=== PATIENT | male | born 1955 | race Caucasian/White ===

== ENCOUNTER 2025-04-25 22:48 | Inpatient (IN) | payer MEDICARE, SELFPAY ==
[2025-04-25] VITALS (7 sets, daily range): BP systolic 99–120; BP diastolic 55–80; BMI 27.5
--- NOTE | 2025-04-25 20:14 | ED.GENMED ---
History of Present Illness
General
Chief Complaint: Chest Pain
Source: patient
Exam Limitations: none
Time Seen by Provider: 04/25/25 20:11
Nursing documentation reviewed up to this point in time: agreed with
History of Present Illness
History of Present Illness:
69-year-old male with history of BPH and hyperlipidemia presents to the emergency room via EMS for evaluation of chest pain, found have a STEMI in the field. Patient reports that he was golfing this evening at around 6 PM when he had acute onset of
chest pain which he describes as substernal pressure. Symptoms were consistent to the point that he had to stop golfing and drove home. He told his that he was having significant chest pain and EMS was called to bring her to the hospital. On
EMS arrival he was mildly hypertensive. Their initial EKG was concerning for inferior STEMI. He was given 324 mg of aspirin and 2 total doses of nitroglycerin and he reports chest pain has improved but not resolved�rates it currently at a 11/26.
He denies having had similar chest pains in the past although he has had occasional palpitations. He denies having seen a forest fire fighter previously but was supposed to see Dr. Henderson through [facility] to have evaluation of his palpitations.
Review of Systems
Review of Systems
All Other Systems: ROS reviewed and negative except as documented in HPI and ROS
Respiratory: Denies trouble breathing
Cardiac: Reports chest pain
ABD/GI: Denies abdominal pain, nausea or vomiting
: Denies flank pain
Musculoskeletal: Denies edema
Neurological: Denies dizzy or headache
Phy Exam
Physical Exam
Physical Exam:
General: Awake, alert, oriented x3; no acute distress
Head: Normocephalic, atraumatic
Eyes: Conjunctiva normal, sclera anicteric
Throat: Airway intact, handling secretions
Neck: Trachea midline, supple without meningismus
Lungs: Clear to auscultation bilaterally, no wheezing, rales, rhonchi
Heart: Regular rate and rhythm, no murmurs, gallops, or rubs
Abd: Soft, non distended, nontender
Neuro: No gross deficits
Skin: no rash in area of concern
Extremities: No edema in extremities, equal pulses in all extremities
Scores
Heart Failure Risk
Heart Failure Risk Score: Not Applicable
Heart Score for Chest Pain Patients
STEMI patient?: Yes
Withdrawal Assessment of Alcohol
Withdrawal Assessment Completed?: Not applicable
Course
Orders/Labs/Results
Orders:
Orders
04/25/25 20:09
Electrocardiogram (*1) Urgent
Reason for Study: Chest Pain
Cardiac Monitoring- Treatment ONCE
EKG- Treatment ONCE
IV Insert/Care/Rem.- Treatment PRN
Complete Blood Count/With Diff Urgent
Comprehensive Metabolic Panel Urgent
Troponin I Urgent
O2 Therapy [RESP] Urgent
Titrate/Wean O2 to maintain O2 sat greater than (%): 90
Special Instructions: Maintain sats >/=90%
Pulse Ox/spot Check [RESP] Urgent
Quantity: 1
Special Instructions: ON ROOM AIR
MDM/Problems Addressed
Differential Diagnosis Includes:
STEMI
MDM/Problems Addressed:
69-year-old male presents with acute onset chest pain while golfing today�EKG concerning for STEMI. Prehospital STEMI alert was called and case was discussed with cattle sorter prehospital who is en route for evaluation. His arrival
EKG here confirms inferior STEMI. He was given aspirin prehospital in addition to nitroglycerin. Given heparin and Brilinta here. Placed on telemetry, supplemental oxygen. Continue to monitor pending Disposal Operator.
*Pulse Oximetry
Patient hypoxic: no (95%)
*EKG
Interpreted by ED Provider?: Yes
Heart Rate: 62
Rate: normal
Rhythm: sinus
[place]: normal axis
Interval: normal interval
QRS Pattern: normal QRS
Ischemia: ST elevation
*Critical Care Note
Total Time (30-74mins, 75-104mins- exclusive of procedures): Not Applicable
Data Reviewed
Source: patient and ambulance crew
Patient Management
Discussion with other providers: Utility Person (Discussed with cattle sorter)
Escalation/DeEscalation of care consider admission/obs:
To Disposal Operator
ED Attending Note
-
Portions of this chart may have been created with voice recognition software.� Occasional wrong word or��sound alike� substitutions may have occurred due to the inherent limitations of voice recognition software.
Discharge Plan
Departure
Patient Disposition: WET POUR SUPERVISOR
Date of Disposition: 04/25/25
Time of Disposition: 20:11
Admit to doctor: Dr. German
Presentation/result/management discussed w/ accepting MD/DO: cardiology
Discharge Problem:
ST elevation (STEMI) myocardial infarction
Interventions
Interventions:
*Risk Screen - Suicide Last Done: 04/25/25 20:13
*General Assessment Last Done: 04/25/25 20:13
*Neglect/Abuse Screening Last Done: 04/25/25 20:13
*ED- Fall Risk Assessment Last Done: 04/25/25 20:13
*ED COVID-19 Vaccine History Last Done: 04/25/25 20:13
ED- Cardiac Assessment Last Done: 04/25/25 20:13
Discharge Date and Time
Print Language: KAZAKH
[2025-04-25 20:23] LABS: Hematocrit 42.5 % (39.0-52.0); Hemoglobin 15.2 g/dL (13.0-18.0); Mean Corp Hgb Conc. 35.8 g/dL (33.0-37.0); Mean Corpuscular Volume 89.1 fL (80.0-94.0); Nucleated Red Blood Cells % 0 % (-); Platelet Count 104 10^3/uL (130-400); Red Cell Dist. Width 12.2 % (11.5-14.5)
[2025-04-25 20:44] LABS: ALT (SGPT) 25 U/L (0-50); AST (SGOT) 25 U/L (17-59); Albumin 4.6 g/dl (3.5-5.0); Alkaline Phosphatase 48 U/L (38-126); Blood Urea Nitrogen 15 mg/dl (9-20); Calcium 9.7 mg/dl (8.4-10.2); Carbon Dioxide 21 mmol/L (22-30); Chloride 109 mmol/L (98-107); Estimated Creatinine Clearance 119 ml/min; Glucose 149 mg/dl (70-99); Potassium 4.3 mmol/L (3.5-5.1); Sodium 139 mmol/L (135-145); Total Protein 7.0 g/dl (6.3-8.2); eGFR > 60.00
[2025-04-25 20:52] LABS: ACT-LR - POC 173 Seconds (116-155)
[2025-04-25 20:59] LABS: Troponin I 0.404 ng/ml
[2025-04-25 21:03] LABS: ACT-LR - POC 284 Seconds (116-155)
[2025-04-25 21:19] LABS: ACT-LR - POC 319 Seconds (116-155)
[2025-04-25 21:41] LABS: ACT-LR - POC 239 Seconds (116-155)
[2025-04-25 21:57] LABS: ACT-LR - POC 281 Seconds (116-155)
[2025-04-25 22:07] LABS: ACT-LR - POC 353 Seconds (116-155)
--- NOTE | 2025-04-25 22:56 | ITS.CL.CATH ---
Relish Blender - Catheterization
Cardiac Catheterization
Procedure Report:
LEFT HEART CATH AND CORONARY INTERVENTION
Date of Procedure: April 26, 2025
Referring: [facility] Emergency Department
PROCEDURES:
1. Left heart catheterization with coronary and single-plane left ventriculography
2. Successful stenting of heavily calcified very tortuous tandem lesions in the mid right coronary artery with overlapping 3.5 x 18 mm and 3.5 x 22 mm Avila stents
INDICATION: This is a 69-year-old gentleman with a past medical history notable for hyperlipidemia and BPH. He reported the onset of waxing and waning substernal chest tightness over the preceding weeks. He noticed symptoms earlier today that
lasted longer than had been his typical pattern then became persistent this evening at approximately 530. 911 was called and a prehospital electrocardiogram was suggestive of of an evolving inferior wall myocardial infarction. His symptoms
improved after receiving aspirin and a single sublingual nitroglycerin but upon arrival to [facility] he continued to experience 2 out of [address] with inferior ST segment elevation on his electrocardiogram and was referred for emergent
coronary angiography.
ACCESS: Attempted right radial access. The beveled needle entered the radial artery on multiple occasions with excellent pulsatile flow through the back of the needle. Unfortunately, a soft tip wire could only be advanced a few millimeters beyond
the needle tip into the radial artery. We attempted accessing the radial artery on 2 sites more proximal and several centimeters above the initial access site with similar response. Pulsatile rosa was noted at the back end of the needle, however,
the wire could not be advanced more than 3 or 4 cm beyond the radial access site. At this point access was converted from the radial artery to the right common femoral artery. Ultrasound guidance was utilized with placement of a 6 Cameroonian sheath.
HEMODYNAMICS (mmHg):
AO (s/d, m) : 112/68
LV (s/d) : 119/8
LVEDP : 28
CORONARY FINDINGS
Dominance: Right
LEFT MAIN: Normal
LEFT ANTERIOR DESCENDING: The LAD arises normally from the left main and is moderately calcified in the midportion of the vessel with a 50% stenosis noted beyond the second diagonal branch. The LAD reaches and wraps around the apex. Faint
[id number] collaterals are noted.
CIRCUMFLEX: Small to medium caliber vessel supplying a bifurcating first obtuse marginal branch and terminating in a very small second obtuse marginal branch
RIGHT CORONARY: The right coronary artery is heavily calcified and very tortuous with 2x90 degree bends in the proximal to mid vessel. The mid RCA is heavily calcified and there are tandem calcified 99% stenoses noted in the mid LAD. There is SCOTT
I flow into the distal vessel.
VENTRICULOGRAPHY: Left ventriculography was performed in an WEIR projection. The digital single-plane left ventricular ejection fraction is visually estimated at 55% with diaphragmatic inferior hypokinesis noted.
ANGIOPLASTY PROCEDURE DETAIL: Upon review of the diagnostic catheterization films the decision was made to proceed with percutaneous revascularization of the heavily calcified tandem high-grade mid stenoses. Intravenous heparin was administered and
the ACT was monitored throughout the procedure. The patient received aspirin and a loading dose of ticagrelor.
The origin of the right coronary artery was initially cannulated with a 6 Cameroonian hockey-stick catheter and a short BMW guidewire was advanced into the distal vessel with a significant amount of difficulty. Balloon predilation was attempted,
however, even a 2.0 x 12 mm Euphora balloon would not cross the 2x 90 degree bends in the proximal and mid vessel without significant resistance. A GuideLiner was advanced to the mid RCA allowing for serial balloon dilation of the mid right
coronary artery. I initially attempted to pass the stenotic segment with a 3.5 x 26 mm Avila stent which was delivered to the mid RCA but would not cross and was removed. A stent strut was lifted during removal secondary to heavy calcification and
tortuosity. This point the artery was predilated using a 2.5 mm noncompliant balloon throughout the mid right coronary artery and the guide liner was advanced. And spite of excellent GuideLiner positioning a stent still would not cross and was
removed. The mid RCA was predilated with a 3 mm noncompliant balloon which again facilitated delivery of the GuideLiner more distally. The 3 mm noncompliant balloon was removed and we were fortunate to deliver a 3.5 x 18 mm Stuart stent across the
more distal lesion in the right coronary artery. Unfortunately, we could not overlap a more proximal stent even with excellent GuideLiner support. As we were trying to advance the stent the entire system of GuideLiner, stent, and wire became
entwined. The wire could not advance distally and we lost guide position. A stent strut was noted to be lifted. The stent was discarded as well.
The hockey-stick guide catheter was removed and exchanged for a 7 Cameroonian AL 0.75 guide catheter and a BMW guidewire was again advanced distally. The AL-1 guide catheter provided a little more support facilitating delivery of the guide liner into
the mid right coronary artery. The more distal stent in mid right coronary artery was dilated with a 3.5 mm noncompliant balloon. The stent was postdilated to 20 kang in the mid right coronary artery was postdilated as the guide liner was advanced.
With a little luck and persistence we are able to advance a 3.5 x 22 mm Stuart stent which was positioned overlapping and implanted in the mid right coronary artery at nominal pressures. The entire stented segment was postdilated to high pressures
with a 3.5 mm noncompliant balloon. At the conclusion of the complex procedure the patient was chest pain-free and his electrocardiogram much improved.
During the procedure the patient became hypotensive and bradycardic. He experienced a long pause and 0.5 mg of atropine was administered. He remained hypotensive in spite of receiving nearly a liter of IV fluid and a norepinephrine infusion was
initiated initially at 4 mcg/kg/min
SEDATION: 108 minutes of procedural sedation was utilized. An independent bilingual medical assistant was present to assist with and help manage the patient's level of consciousness and physiologic status
RADIATION SUMMARY: Fluoro Time (min): 39.5, Dose (mGy): 1835, DAP (Gy.cm2) : 155
CONCLUSIONS
1. Complex stenting of the mid right coronary artery with overlapping 3.5 x 22 mm and 3.5 x 18 mm Stuart stents that were implanted with a significant degree of difficulty due to severe tortuosity and heavy calcification within the right coronary
artery. The stented segment was postdilated with a 3.5 mm noncompliant balloon
2. Preserved LV systolic function
RECOMMENDATIONS
1. Trend serial troponin levels and obtain fasting lipid profile and hemoglobin A1c
2. Uninterrupted dual antiplatelet therapy for 1 year followed by aspirin for life
3. High intensity statin therapy
4. Will attempt to wean norepinephrine overnight as long as blood pressure remains stable
Copy to: Dr. Jaycob German
[2025-04-25 23:15] LABS: Glucose - Point of Care 137 mg/dl (70-99)
[2025-04-25] MEDS: CRESTOR 20 MG PO (23:33)
[2025-04-26] VITALS (21 sets, daily range): BP systolic 93–108; BP diastolic 55–69; BMI 26.9
[2025-04-26 00:18] LABS: INR 1.15; PT 15.2 Sec (11.4-14.6)
[2025-04-26 00:29] LABS: Troponin I 3.010 ng/ml
[2025-04-26 00:32] LABS: APTT > 200 Sec (23.4-35.0)
--- NOTE | 2025-04-26 02:05 | PTCARENOTE ---
Late entry: Received pt to ICU room 3370 from geochemical laboratory technician at 2246, s/p PCI. Pt has denied CP since arriving to unit. Pt on Levophed at 4mcg/min upon arrival to ICU. R femoral site C/D/I with 4x4 gauze and tegaderm, right radial access had been
attempted but unsuccessful, 2+ right radial pulse and site is C/D/I. Pt's BLE are both cool to touch and pt states that he has neuropathy at baseline and that his sensation to both feet is significantly diminished--neurovascular checks to RLE
ongoing per ordered frequency, see post cath/angiography flowsheet on worklist for details on these assessments. Right DP pulse has been weakly palpable, 1+, + signal when double checked with doppler, + doppler signal to right PT as well. Levophed
weaned off just after 0200. SB on monitor, 40s-50s with PVCs. Physical assessment as documented in nursing shift assessment flowsheet.
--- NOTE | 2025-04-26 04:14 | PTCARENOTE ---
Assessment unchanged. SB 50s on monitor, maintaining SBP >90 and MAP >65 off Levophed. No c/o chest pain. CAD booklet given to patient and videos assigned. Repeat troponin and AM labs drawn/sent.
[2025-04-26 04:40] LABS: Hematocrit 37.9 % (39.0-52.0); Hemoglobin 13.4 g/dL (13.0-18.0); Mean Corp Hgb Conc. 35.4 g/dL (33.0-37.0); Mean Corpuscular Volume 89.4 fL (80.0-94.0); Platelet Count 97 10^3/uL (130-400); Red Cell Dist. Width 12.2 % (11.5-14.5)
[2025-04-26 04:49] LABS: Blood Urea Nitrogen 12 mg/dl (9-20); Calcium 8.6 mg/dl (8.4-10.2); Carbon Dioxide 21 mmol/L (22-30); Chloride 111 mmol/L (98-107); Estimated Creatinine Clearance > 125 ml/min; Glucose 136 mg/dl (70-99); HDL Cholesterol 36 mg/dl; LDL Cholesterol, Calculated 88 mg/dl; Potassium 4.3 mmol/L (3.5-5.1); Sodium 137 mmol/L (135-145); Very Low Density Lipoprotein 27 mg/dl (0-30); eGFR > 60.00
[2025-04-26 05:03] LABS: Troponin I 10.300 ng/ml
[2025-04-26] MEDS: LOW STRENGTH ASPIRIN 81 MG PO (08:32)
[2025-04-26] MEDS: PROTONIX 40 MG PO (08:32)
[2025-04-26] MEDS: BRILINTA 90 MG PO ×2 (08:32→20:29)
--- NOTE | 2025-04-26 08:42 | CON.INTV ---
Consultation
Consultation Request
Date/Time Consultation Requested: 04/26/2025
Date/Time Consultation Performed: 04/26/2025
Requesting Provider: Dr. German
Performing Provider: Dr. Yobani Koch
Reason for Consultation: Acute ST elevation myocardial infarct
Medical History
-
Chief Complaint: Chest pain
History of Present Illness:
69-year-old man who is a former smoker, has history of BPH, hypercholesterolemia came to the emergency room complaining of chest pain. Patient states that for the last several weeks he has been having chest discomfort. In [place]. He played a
round of golf and by the end he had significant symptoms. He went home and due to lack of improvement came to the emergency room. He was found to have an ST elevation myocardial infarction.
He was emergently taken to the Ict Sales Assistant. Underwent successful stenting of heavily calcified mid right coronary artery.
Transferred to the critical care unit due to borderline hypotension requiring Levophed.
This morning denies any chest pain. Denies nausea or vomiting.
Levophed has been discontinued
Reports some mild dyspnea sensation but otherwise feels okay.
He is a former smoker. He usually gets yearly low-dose radiation CAT scan for screening. Next
Past Medical History
Past Medical History: Other ( see assessment and plan)
Social History
Tobacco: Former Smoker
Alcohol: Occasional
Drug: None
Personal:
Living: With Family
Family History
Family History: Reviewed & Not Pertinent
Allergies / Home Medications
Allergies
Allergy/AdvReac Type Severity Reaction Status Date / Time
No Known Allergies Allergy Unverified 04/25/25 20:12
Home Medications
�Medication �Instructions �Recorded �Confirmed �Last Taken �Type
cholecalciferol (vitamin D3) 50 50 mcg PO DAILY Supplement 04/25/25 04/25/25 04/24/25 18:00 History
mcg (2,000 unit) capsule (Vitamin
D3)
multivitamin 1 tab PO DAILY Supplement 04/25/25 04/25/25 04/24/25 18:00 History
rosuvastatin 5 mg tablet 5 mg PO DAILY High Cholesterol 04/25/25 04/25/25 04/24/25 18:00 History
silodosin 8 mg capsule 8 mg PO DAILY Urinary Issue 04/25/25 04/25/25 04/24/25 18:00 History
tadalafil 5 mg tablet 5 mg PO DAILY Urinary Issue 04/25/25 04/25/25 04/24/25 18:00 History
Review of Systems
-
History Source: Patient
All other systems: Negative unless noted
Vitals / Labs / Diagnostic Testing
Vital Signs
Temp Pulse Resp BP Pulse Ox
97.9 F 54 21 97/61 99
04/26/25 07:37 04/26/25 07:00 04/26/25 07:00 04/26/25 07:00 04/26/25 08:08
Lab Data
04/26/25 04:05
04/26/25 04:05
Laboratory Results
04/25/25
23:49
PT 15.2 H
INR 1.15
APTT > 200 H*
Diagnostic Testing:
Physical Exam
-
HEENT: Normocephalic
Cardiovascular: S1/S2
Respiratory: Clear and Non-Labored Respirations
GI: Soft and Non Distended
Neurology: Awake, Alert and AO x 3
Skin: Warm
General: Comfortable
Assessment
-
69-year-old man with past medical history noted, admitted through the emergency room with increase in the chest pain. Symptoms started about 3 to 4 weeks ago. After round of golf symptoms was severe what prompted come to the emergency room. Found
to have ST elevation myocardial infarction. Inferior distribution. Taken emergently to Ict Sales Assistant status post stenting.
Acute chest pain: Acute ST elevation myocardial infarction-status post RCA stent 04/25/2025
Peak troponin 10.3.
EKG suggestive of inferior SC
Conditions present prior admission:
BPH
Hypercholesterolemia
Former smoker
Assessment and plan:
Admitted to the critical care unit overnight for monitoring.
No evidence for arrhythmia.
Patient in sinus bradycardia but mostly asymptomatic.
Levophed has been discontinued-hemodynamically stable
Chest pain-free
Continue telemetry monitoring and IVU.
Peak troponin 10-continue to trend
Echocardiogram
Antiplatelets
Restart statin
Continue post SC care per cardiology
Patient will be transferred to IVU
-
Eventual cardiac rehab
-
Lifestyle modifications discussed with patient. He is agreeable.
-
Restart BPH medication
Hold tadalafil
-
Former smoker:Patient states that he gets low-dose radiation cancer screening.
-
DVT prophylaxis with Lovenox
-
Patient will be transferred to IVU.
Critical care team will sign off
--- NOTE | 2025-04-26 09:25 | PTCARENOTE ---
Pt rec'd in report from offgoing RN, vascular check performed in tandem during walking rounds; R femoral site remains CDI with 4x4 gauze and tegaderm, right wrist dressing with small amount old drainage, palpable radial pulse. Pt's BLE are both cool
to touch -pt states that he has neuropathy at baseline and that his sensation to both feet is diminished--neurovascular checks to RLE ongoing now Q4 hours, see post cath/angiography flowsheet. Right DP pulse weakly palpable as prior, strong doppler
signal to right PT as well. Plant Technical Specialist consult noted, downgraded to IVU by Dr. German, Pt and daughter both updated by Plant Technical Specialist on plan of care. Vitals remain stable, see worklist for documentation.
[2025-04-26 09:41] LABS: Glycohemoglobin (HgbA1c) 5.8 % (4.0-5.6)
--- NOTE | 2025-04-26 10:51 | CM ---
Addendum entered by Jean Covarrubias 04/26/25 11:42:
Brilinta 90 mg BID is $415.49 per month.
Original Note:
Initial assessment completed with . Patient receiving care. Patient lives with his in a 2 story split level home with no basement, B/B on , 1 step to enter. Also has a full handicap bath and bedroom on the lower level. PANEL EDGE PAINTER patient
was independent in ADL's and ambulation, drives. There is DME in the home from 's father who recently passed: RW, SPC, W/CH, bars. Patient does not use any DME. Does have HC-POA. PCP is [facility]. [facility]acy is [facility] in [place]. Discharge POC: TBD. Anticipate Home with HH RN if home bound.
[2025-04-26 11:04] LABS: Troponin I 18.500 ng/ml
[2025-04-26] MEDS: NON-FORMULARY ITEM 1 UNIT PO (13:18)
--- NOTE | 2025-04-26 13:47 | W.PN.CARDCBS ---
Today's Communication / Plan
-
-Transfer to IVU
-Continue aspirin and Brilinta for now. Awaiting case management eval
-Trend troponin to peak and fall
-Hold off on sildenafil daily for now
-Rapaflo / silodosin restarted
-Continue high intensity statin
Impression / Plan
-
PCP: Robert Perkins,
CDY: Trenton German MD (none prior to admission)
69 y/o, PMH notable for HLD, BPH, former tobacco abuse. Pt endorses intermittent progressive chest pain over the last few weeks, that persisted last evening and he called 911. Prehospital EKG suggestive of evolving inferior NJ. Some improvement with
aspirin and SL NTG, however, he had persistent 2/10 chest pain in ER with continued inferior ST segment elevations, and brought emergently to research lab assistant.
LHC- 50% mid LAD
99% heavily calcified tortuous tandem lesions in mid RCA- s/p complex angioplasty w/2 overlapping GENO
LVEDP 28
LVGram- inferior HK, estimated EF 55%
borderline hypotension during/post case requiring levophed for support
IMPRESSION:
-Acute inferior STEMI
-s/p angioplasty w/2 overlapping GENO to mid RCA, 04/25/25
-HLD
-BPH
-Former tobacco abuse
- 04/26/2025: Echo: LV: EF 53% with HK of basal inferior wall. RV: Normal, LA: Normal, RA: Normal, MV: Trace MR, AV: Trace AI with mild thickening and sclerosis. TV: Mild TR
PLAN:
-Tele- SB, no VT/arrhythmia
-Troponin 18.5 will trend to peak
-DAPT w/asa, brilinta- CM to check cost- low platelets noted on arrival and stable at 97 today- will monitor
-Echocardiogram with preserved EF
-Levophed has been d/c- hemodynamically stable but BP still soft- low 100s- hold off on BB, LUCIANO/ARB for now
-Lipid profile noted- rosuvastatin increased to 20mg/daily
-Cardiac rehab
-followup with DCA
-downgrade to IVU status and monitor on tele another 24-48h
Progress Note - Hand Glove Cleaner
Subjective
Date of Service: April 26, 2025
Feels well. Mild dyspnea this morning which passed quickly
Objective
Labs:
04/26/25 04:05
04/26/25 04:05
Labs
Hgb 13.4 g/dL (13.0-18.0) 04/26/25 04:05
Hct 37.9 % (39.0-52.0) L 04/26/25 04:05
Plt Count 97 10^3/uL (130-400) L 04/26/25 04:05
PT 15.2 Sec (11.4-14.6) H 04/25/25 23:49
INR 1.15 04/25/25 23:49
APTT > 200 Sec (23.4-35.0) H* 04/25/25 23:49
Sodium 137 mmol/L (135-145) 04/26/25 04:05
Potassium 4.3 mmol/L (3.5-5.1) 04/26/25 04:05
BUN 12 mg/dl (9-20) 04/26/25 04:05
Creatinine 0.6 mg/dL (0.7-1.3) L 04/26/25 04:05
Glucose 136 mg/dl (70-99) H 04/26/25 04:05
Troponins
04/25/25 04/25/25 04/26/25
20:15 23:49 04:05
Troponin I 0.404 H* 3.010 H* D 10.300 H* D
04/26/25
10:18
Troponin I 18.500 H* D
Vital Signs and I&O:
Vital Signs
Temp Pulse Resp BP Pulse Ox
97.9 F 61 12 100/62 96
04/26/25 07:37 04/26/25 13:00 04/26/25 09:02 04/26/25 12:18 04/26/25 12:21
Vital Signs
Temp Pulse Resp BP Pulse Ox
97.9 F 61 12 100/62 96
04/26/25 07:37 04/26/25 13:00 04/26/25 09:02 04/26/25 12:18 04/26/25 12:21
Intake & Output
04/23/25 04/24/25 04/25/25 04/26/25
23:59 23:59 23:59 23:59
Intake Total .3 1946.3 / 194.3
Output Total 500 / 500
Balance .3 1446.3 / 1446.3
GEN: AAO x 3.��No acute distress
HEENT:��NC/AT, sclera are anicteric
LUNGS: Clear in the anterolateral lung farooq. No wheezing
CV: Regular rate and rhythm.��Normal S1/S2.��Murmur: None
ABD : Soft, NT, ND, Bowel sounds are present.
EXT: Changes of chronic venous insufficiency in the left leg. Right common femoral arteriotomy access site is soft and no bruit is noted
NEURO: No focal neurologic deficits��
--- NOTE | 2025-04-26 13:48 | PTCARENOTE ---
Pt's brought in own med (silodosin 8mg) which was provided to pharmacist for order and barcoding. Dose administered per order, see MAR. Dr. German arrived at bedside to assess patient. Care ongoing.
--- NOTE | 2025-04-26 15:54 | CM ---
Asked to check co-pay for Brilinta 90 mg po bid. Telephone call to [facility], ([phone]) to check on co-pay fro Brilinta. He has not met his deductible yet so his co-pay for Brilinta 90 mg po bid. His co-pay would be $415.49 until he mets
his deductible. After his deductible has been met the guillen goes to $125.00 a month because it is a tier three medication and he would pay 25% of the cost of the medication. Tricagrelor , generic is not covered under his formulary plan. He can
use the Good Rx coupon for Ticagrelor for $34.00 a month. [facility] have Brilinta or Ticagrelor in stock. [facility] on [address] [address] , [place], [place] has Ticagrelor in stock and he can use the Good Rx coupon. Met with Mr.
Tomasz and his daughter to review. He is agreeable to using the good rx coupon. Daughter has the coupon. Updated CURTAIN ROLLER ASSEMBLER and script cent to [facility] in [place].
[2025-04-26 16:52] LABS: Troponin I 19.200 ng/ml
[2025-04-26] MEDS: CRESTOR 20 MG PO (17:01)
[2025-04-26] MEDS: LOVENOX 40 MG SC (17:01)
--- NOTE | 2025-04-26 17:16 | PTCARENOTE ---
Pt remains pleasant and cooperative, resting when undisturbed, AOx3. BPs remain soft normal, HR in 50-60s, pt with no complaints. Troponin sent, result 19.2 noted. Labs and ECG ordered for am by Dr. German. Pt ordering dinner, awaiting bed
assignment in IVU. left for the evening. Call ayoub in hand -safe environment maintained.
--- NOTE | 2025-04-26 18:11 | PTCARENOTE ---
Pt moved to ICU room 3358 with all belongings. Pending IVU transfer is delayed at this time, pt remains stable-no needs.
--- NOTE | 2025-04-26 20:49 | PTCARENOTE ---
Pt Aox3, VSS, SB w/ PVC on monitor, denies pain. Right groin is soft, nontender, post op dressing CDI. + pulses to lower extremities. Pt independent with care.
[2025-04-27 03:45] VITALS: BP 120/76
[2025-04-27 04:43] LABS: Hematocrit 38.7 % (39.0-52.0); Hemoglobin 13.4 g/dL (13.0-18.0); Mean Corp Hgb Conc. 34.6 g/dL (33.0-37.0); Mean Corpuscular Volume 90.6 fL (80.0-94.0); Platelet Count 87 10^3/uL (130-400); Red Cell Dist. Width 12.5 % (11.5-14.5)
[2025-04-27 04:46] LABS: Blood Urea Nitrogen 12 mg/dl (9-20); Calcium 9.1 mg/dl (8.4-10.2); Carbon Dioxide 24 mmol/L (22-30); Chloride 112 mmol/L (98-107); Estimated Creatinine Clearance 119 ml/min; Glucose 108 mg/dl (70-99); Magnesium 1.9 mg/dl (1.6-2.3); Potassium 4.1 mmol/L (3.5-5.1); Sodium 140 mmol/L (135-145); eGFR > 60.00
[2025-04-27 04:59] LABS: Troponin I 12.900 ng/ml
[2025-04-27 05:49] VITALS: BMI 26.6
[2025-04-27] MEDS: LOW STRENGTH ASPIRIN 81 MG PO (07:57)
[2025-04-27] MEDS: BRILINTA 90 MG PO (07:57)
[2025-04-27] MEDS: PROTONIX 40 MG PO (07:57)
[2025-04-27 08:04] VITALS: BP 108/62
[2025-04-27] MEDS: NON-FORMULARY ITEM 1 UNIT PO (08:06)
--- NOTE | 2025-04-27 09:19 | PTCARENOTE ---
Rec'd pt at 0700. Pt AAOx3, ambulating in room. IVU LOC. Monitor SBR/SR 50-60's. Lungs CTA. +BS, abd soft/nt. Pt states that he wants to go home today, awaiting cafeteria assistant to round.
--- NOTE | 2025-04-27 09:39 | W.PN.CARDCBS ---
Addendum entered and electronically signed by Carmen Suarez PA-C 04/29/25 16:54:
Dictation # [id number]
Addendum entered and electronically signed by Rena Katz MD 04/27/25 12:09:
I saw and examined the patient.
The Manufacturing Team Member's note was reviewed and I agree with the note.
Comment: Exam stable. Right wrist with some ecchymosis but stable. Groin doing fine. No edema. His is at the bedside. He did well overnight. Telemetry stable and independently reviewed by me. EKG reviewed by me. Labs also reviewed.
Echocardiogram also reviewed.
He initially presented with chest pain and acute inferior STEMI
He went to the [facility] and underwent angioplasty w/2 overlapping GENO to mid RCA.
He is feeling great with no symptoms overnight. He is ambulating without difficulty.
We reviewed recent procedure. Continue dual antiplatelet therapy uninterrupted. Light activity until groin and wrist are healed.
Aggressive treatment of risk factors.
Blood pressure remains stable status post need for Levophed postprocedure.
Cardiac rehab as outpatient.
Follow-up in the office scheduled.
Discussed with nursing in addition. I have spent 30 minutes [id number] and mvk-gdbi-[id number]-face time in discussion and review of records.
Original Note:
Today's Communication / Plan
-
Continue DAPT with aspirin, Brilinta
Continue higher dose rosuvastatin.
Follow up arranged
Likely for discharge later today
Impression / Plan
-
PCP: Robert Perkins DO
Cardiology: Trenton German MD
Impression:
Presented with chest pain
Acute inferior STEMI
CAD
s/p angioplasty w/2 overlapping GENO to mid RCA, 04/25/25
HLD
BPH
Former tobacco abuse
LHC 04/25/2025: 50% mid LAD, 99% heavily calcified tortuous tandem lesions in mid RCA- s/p complex angioplasty w/2 overlapping GENO, LVEDP 28, LVGram- inferior HK, estimated EF 55%, borderline hypotension during/post case requiring levophed for support
04/26/2025 Echo: LV: EF 53% with HK of basal inferior wall. RV: Normal, LA: Normal, RA: Normal, MV: Trace MR, AV: Trace AI with mild thickening and sclerosis. TV: Mild TR
Plan:
-Presented with waxing and waning chest pain over preceding weeks. Symptoms worsened acutely on 04/25 and admitted with acute inferior STEMI.
-LHC revealed 99% tandem lesions in the mid RCA. Underwent successful angioplasty w/ GENO x 2.
-Troponin peaked at 19.2 and trended down thereafter.
-Continues on DAPT with aspirin and Brilinta. Low platelets noted on arrival, down slightly to 87 04/27. Continue to monitor.
-Notes slight chest twinge last night but resolved after taking a drink of water.
-Ambulating without exertional symptoms.
-Echo 04/26 with preserved EF and basal inferior hypokinesis as noted above.
-BP improved. Has remained off pressors. No BB, LUCIANO, or ARB at this time, would consider starting as OP if BP allows.
-LDL 88. Rosuvastatin increased to 20 mg daily.
-Hgb A1c 5.8%.
-Cardiac rehab consulted, scheduled for 05/24.
-Follow up arranged. Likely ok for discharge later today
HPI: 69 y/o, PMH notable for HLD, BPH, former tobacco abuse. Pt endorses intermittent progressive chest pain over the last few weeks, that persisted last evening and he called 911. Prehospital EKG suggestive of evolving inferior [place]. Some improvement
with aspirin and SL NTG, however, he had persistent 2/10 chest pain in ER with continued inferior ST segment elevations, and brought emergently to clinical laboratory assistant.
Progress Note - Computer Language Coder
Subjective
Date of Service: April 27, 2025
Brief, mild chest twinge noted overnight, resolved w/ taking a sip of water. No recurrence.
Objective
Labs:
04/27/25 03:54
04/27/25 03:54
Labs
Hgb 13.4 g/dL (13.0-18.0) 04/27/25 03:54
Hct 38.7 % (39.0-52.0) L 04/27/25 03:54
Plt Count 87 10^3/uL (130-400) L 04/27/25 03:54
PT 15.2 Sec (11.4-14.6) H 04/25/25 23:49
INR 1.15 04/25/25 23:49
APTT > 200 Sec (23.4-35.0) H* 04/25/25 23:49
Sodium 140 mmol/L (135-145) 04/27/25 03:54
Potassium 4.1 mmol/L (3.5-5.1) 04/27/25 03:54
BUN 12 mg/dl (9-20) 04/27/25 03:54
Creatinine 0.7 mg/dL (0.7-1.3) 04/27/25 03:54
Glucose 108 mg/dl (70-99) H 04/27/25 03:54
Troponins
04/25/25 04/25/25 04/26/25
20:15 23:49 04:05
Troponin I 0.404 H* 3.010 H* D 10.300 H* D
04/26/25 04/26/25 04/27/25
10:18 16:16 03:54
Troponin I 18.500 H* D 19.200 H* 12.900 H*
Vital Signs and I&O:
Vital Signs
Temp Pulse Resp BP Pulse Ox
98.0 F 54 10 108/62 98
04/27/25 07:22 04/27/25 08:04 04/27/25 08:04 04/27/25 08:04 04/26/25 20:00
Vital Signs
Temp Pulse Resp BP Pulse Ox
98.0 F 54 10 108/62 98
04/27/25 07:22 04/27/25 08:04 04/27/25 08:04 04/27/25 08:04 04/26/25 20:00
Intake & Output
04/25/25 04/26/25 04/27/25 04/28/25
06:59 06:59 06:59 06:59
Intake Total 761.3 / 761.3 1200 / 1200
Output Total 500 / 500
Balance 261.3 / 261.3 1200 / 1200
Physical Exam
Physical Exam
GEN: No distress, awake, alert, oriented x3
HEENT: supple, anicteric, mmm
LUNGS: CTA b/l, no wheezes/rales
CV: Reg, S1/S2, no murmur
EXT: No clubbing, cyanosis, or edema
NEURO: Gross non-focal
SKIN: Warm, dry, no rash
--- NOTE | 2025-04-27 10:14 | W.DS.TRANS ---
DC Summary - Telephone Operator
-
Discharge Instructions:
Discharge Diagnosis/Procedures STEMI, Angioplasty with stent x2 to Right
Coronary artery
Diet Low Cholesterol
Driving Restrictions No driving for 24 hours
Other Services Cardiac Rehab
Instructions:
Stand-Alone Forms: DC Instructions- Cath/EP Lab
Changes to Home Medications: Yes
Discharge Medications:
DC Medications w/original date entered in [employer]
cholecalciferol (vitamin D3) 50 mcg (2,000 unit) capsule (Vitamin D3) 50 mcg PO QPM Supplement 04/25/25
multivitamin 1 tab PO QPM Supplement 04/25/25
silodosin 8 mg capsule 8 mg PO DAILY Urinary Issue 04/25/25
aspirin 81 mg chewable tablet 81 mg PO DAILY #0 tabs 04/26/25
pantoprazole 40 mg tablet,delayed release 40 mg PO DAILY #30 tabs 04/26/25
rosuvastatin 20 mg tablet 20 mg PO QPM #30 tabs 04/26/25
ticagrelor 90 mg tablet (Brilinta) 90 mg PO BID #60 tabs 04/26/25
Home Medication Changes
Rosuvastatin increased
aspirin is new
Pantoprazole is new
ticagrelor is new
Pending Results: No
--- NOTE | 2025-04-27 11:58 | PTCARENOTE ---
Dr. Katz in to see pt. Discharge instructions received and reviewed with pt. IV site and monitor removed. Pt discharged to home, belongings with pt.
--- NOTE | 2025-04-27 12:20 | CM ---
Attempted to see pt prior to discharge but pt was already gone.
Discharged to home, no needs. Family transport.
== END 2025-04-27 12:19 | disposition home or self-care (01) | DRG 322 ==
LOC: ICU 22:48
PROVIDERS: Nurse Practitioner; ADMITTING PHYSICIAN Internal Medicine Interventional Cardiology; CONSULT PHYSICIAN Internal Medicine Critical Care Medicine; EMERGENCY PHYSICIAN Emergency Medicine
PROC: B2111ZZ Fluoroscopy of Multiple Coronary Arteries using Low Osmolar Contrast (ICD-10-PCS; 2025-04-25)
PROC: 4A023N7 Measurement of Cardiac Sampling and Pressure, Left Heart, Percutaneous Approach (ICD-10-PCS; 2025-04-25)
PROC: 027035Z Dilation of Coronary Artery, One Artery with Two Drug-eluting Intraluminal Devices, Percutaneous Approach (ICD-10-PCS; 2025-04-25)
PROC: B2151ZZ Fluoroscopy of Left Heart using Low Osmolar Contrast (ICD-10-PCS; 2025-04-25)
DX: I21.19 ST elevation (STEMI) myocardial infarction involving other coronary artery of inferior wall (principal); I25.10 Atherosclerotic heart disease of native coronary artery without angina pectoris; I95.9 Hypotension, unspecified; R00.1 Bradycardia, unspecified; E78.00 Pure hypercholesterolemia, unspecified; N40.0 Benign prostatic hyperplasia without lower urinary tract symptoms; I87.2 Venous insufficiency (chronic) (peripheral); M19.90 Unspecified osteoarthritis, unspecified site; F17.290 Nicotine dependence, other tobacco product, uncomplicated
CPT/HCPCS: 80048; 80053; 80061; 82962; 83036; 83735; 84484; 85025; 85027; 85347; 85610; 85730; 93005; 93306; 93458; 94760; 99152; 99153; 99285; C1725; C1769; C1874; C1894; C9606; Q9967

== ENCOUNTER 2025-05-16 13:50 | Outpatient (RCR) | payer MEDICARE, SELFPAY | END 2025-05-16 23:59 | disposition home or self-care (01) | LOC: CRHB 13:50 | PROVIDERS: ATTENDING PHYSICIAN Internal Medicine Interventional Cardiology; FAMILY PHYSICIAN Family Medicine | DX: I25.10 Atherosclerotic heart disease of native coronary artery without angina pectoris (principal); Z95.5 Presence of coronary angioplasty implant and graft; I25.2 Old myocardial infarction | CPT/HCPCS: G0422; G0423 ==

== ENCOUNTER 2025-06-17 16:11 | Outpatient (RCR) | payer MEDICARE, SELFPAY | END 2025-06-17 23:59 | disposition home or self-care (01) | LOC: CRHB 16:11 | PROVIDERS: ATTENDING PHYSICIAN Internal Medicine Interventional Cardiology; FAMILY PHYSICIAN Family Medicine | DX: I21.01 ST elevation (STEMI) myocardial infarction involving left main coronary artery (principal); I25.2 Old myocardial infarction (principal); Z95.5 Presence of coronary angioplasty implant and graft | CPT/HCPCS: G0422; G0423 ==

== ENCOUNTER 2025-07-19 16:09 | Outpatient (RCR) | payer MEDICARE, OTHER, SELFPAY ==
[2025-07-18 12:44] LABS: HDL Cholesterol 44 mg/dl; LDL Cholesterol, Calculated 66 mg/dl; Very Low Density Lipoprotein 21 mg/dl (0-30)
== END 2025-07-19 23:59 | disposition home or self-care (01) ==
LOC: CRHB 16:09
PROVIDERS: ATTENDING PHYSICIAN Internal Medicine Interventional Cardiology; FAMILY PHYSICIAN Family Medicine
DX: I25.2 Old myocardial infarction (principal); I25.10 Atherosclerotic heart disease of native coronary artery without angina pectoris (principal); Z95.5 Presence of coronary angioplasty implant and graft; I21.01 ST elevation (STEMI) myocardial infarction involving left main coronary artery
CPT/HCPCS: 36415; 80061; G0422; G0423

== ENCOUNTER 2025-08-12 15:47 | Outpatient (RCR) | payer MEDICARE, OTHER, SELFPAY | END 2025-08-12 16:15 | disposition home or self-care (01) | LOC: CRHB 15:47 | PROVIDERS: ATTENDING PHYSICIAN Internal Medicine Interventional Cardiology; FAMILY PHYSICIAN Family Medicine | DX: I25.2 Old myocardial infarction (principal); I25.10 Atherosclerotic heart disease of native coronary artery without angina pectoris (principal); Z95.5 Presence of coronary angioplasty implant and graft | CPT/HCPCS: G0422; G0423 ==